=== PATIENT | male | born 1995 | race Caucasian/White ===

== ENCOUNTER 2019-07-02 13:21 | Emergency (ER) | payer SELFPAY ==
[2019-07-02 13:24] VITALS: BP 163/88; PULSE 92; RESP 14; TEMP 36.2; O2SAT 99
--- NOTE | 2019-07-02 13:36 | ED.GENADUL_ITS ---
Discharge Plan Disposition Patient Disposition: HOME Condition: Good Discharge Details Chief Complaint: DentalOral Clinical Impression: Fracture of tooth, Dental infection Primary Care Provider: Marry Moya ED Provider: Gretchen Santillan Home Meds and New Rx's Prescriptions: New oxycodone 5 mg tablet 5 mg PO Q4H PRN (Reason: pain) Qty: 7 RF: 0 acetaminophen [Tylenol Extra Strength] 500 mg tablet 500 mg PO Q4H PRN (Reason: pain) Qty: 30 RF: 0 ibuprofen 600 mg tablet 600 mg PO QID PRN (Reason: pain) Qty: 30 RF: 0 amoxicillin-pot clavulanate [Augmentin] 875-125 mg tablet 1 tab PO BID Qty: 14 RF: 0 Discharge Instructions Instructions: Dental Abscess (ED) Additional Instructions: Encourage hydration. Please use Tylenol and/or ibuprofen as needed as prescribed for discomfort. You may augment this with the oxycodone as prescribed. Please take this only as prescribed. You may not drive while taking this medication. Please keep this in safe place. Please take the Augmentin as prescribed for dental infection. You have an appointment with a dentist at [facility] in [facility] on July 24 at 9:45 AM. You are also on their own wait list and they will contact you with any available openings. If you are unable to make this appointment, please call at [phone]. If you develop fever/chills, swelling, increased pain or the new/worsening symptoms please seek care urgently once again. Attached is a list of local dentist, you may call others in the area to see if you are able to get a more expedited appointment. Referrals: Marry Moya [Primary Care Provider] - Discharge Data Discharge Date/Time-TO BE ENTERED AT DEPARTURE: 07/02/19 13:54 Medical Decision Making Patient is a 23 year old male presenting today with c/c of right upper dental pain. States it has been a week and a half ago his #1 tooth broke. States that initially was not having any pain but pain began the past 2 days and has steadily increase in pain is now severe. States the pain is now radiating slightly forward and reports discomfort near the #2, 3 and 4 tooth. Denies any fevers or chills. States that any pressure applied to the tooth increases pain. On exam, he appears nontoxic. He does appear uncomfortable. He does have a notable fracture to the posterior lateral aspect of the #1 tooth. No focal areas of swelling or erythema. No drainable abscess identified. No lymphadenopathy, no trismus. Exam otherwise benign. At this time, I am primarily concerned for infection given the progression of discomfort. Initially, I had been thinking this may be associated with a fractured tooth but as he is not initially having pain I find this less likely. Feel that treatment is appropriate. He has been contacting dentist and has not been able to find appointment until next spring. Nursing staff contacted local dentist was able to get the patient appointment in 3 weeks with local dentist. Will be placed on Augmentin. I did review the PDMP and feel the patient is safe to prescribe oxycodone to. He was given judicious usage instructions as well as safety precautions regarding oxycodone. He was given strict return precautions. List of local dentist was also given if you would like to contact other local places. All his questions and concerns were addressed and he is in agreement with this plan. HPI General Mode of arrival: ambulatory . Date/Time Provider Initiated Documentation: 07/02/19 13:27 . Limitations to Documentation: no limitations . Information obtained by: patient and RN notes reviewed . History of Present Illness 23 year old M presents to the emergency department with the chief complaint of right upper dental pain, described as moderate, with intensity rated at 6. Quality is described as aching, and is localized to the mouth. Patient reports radiation to (radiates from #1 anteriorly to the #4 tooth). Patient started experiencing this day(s) (2) and it has been constant. No relieving factors improve symptom(s), Eating worsens symptoms . Patient notes no other symptoms.. Patient did receive the following treatments prior to arrival, none Related Data Home Medications Medication Instructions Recorded Confirmed acetaminophen [Tylenol Extra 500 mg PO Q4H PRN #30 tab 07/02/19 Strength] amoxicillin-pot clavulanate 1 tab PO BID #14 tab 07/02/19 [Augmentin] ibuprofen 600 mg PO QID PRN #30 tab 07/02/19 oxycodone 5 mg PO Q4H PRN #7 tab 07/02/19 Previous Rx's Medication Instructions Recorded acetaminophen [Tylenol Extra 500 mg PO Q4H PRN #30 tab 07/02/19 Strength] amoxicillin-pot clavulanate 1 tab PO BID #14 tab 07/02/19 [Augmentin] ibuprofen 600 mg PO QID PRN #30 tab 07/02/19 oxycodone 5 mg PO Q4H PRN #7 tab 07/02/19 Allergies Allergy/AdvReac Type Severity Reaction Status Date / Time No Known Allergies Allergy Unverified 07/02/19 13:27 General Stated Complaint: DentalOral HUMBERTO: 4 Review of Systems Constitutional Constitutional: Reports as per HPI, Denies chills, Denies fatigue, Denies fever(s), Denies headache(s) and Denies poor appetite Eyes Eyes: Denies change in vision and Denies irritation ENT Ears, Nose, Mouth, and Throat: Reports as per HPI, Reports dental pain, Denies dysphagia, Denies dizziness, Denies dry mouth, Denies ear discharge, Denies otalgia, Reports facial pain, Denies headache(s), Denies hoarseness, Denies lip swelling, Denies nasal congestion, Denies odynophagia and Denies sore throat Cardiovascular Cardiovascular: Reports as per HPI and Denies chest pain Respiratory Respiratory: Reports as per HPI and Denies cough Gastrointestinal Gastrointestinal: Reports as per HPI, Denies dysphagia, Denies nausea, Denies odynophagia and Denies vomiting Integumentary/Breasts Skin/Breast: Reports as per HPI, Denies erythema, Denies rash and Denies skin pain Neurologic Neurologic: Reports as per HPI, Denies dizziness and Denies headache(s) Endocrine Endocrine: Denies fatigue Allergic/Immunologic Allergic/Immunologic: Denies lip swelling [facility] Social History Smoking/Tobacco Use Status: Current every day Tobacco Type: e-cigarettes Alcohol Intake: never Drug use: Daily Substance use type: marijuana Do you feel safe at home: Yes Do you feel safe in your relationship?: Yes Exam Const General: cooperative, healthy appearing, uncomfortable (tearing, appears uncomfortable), no acute distress, well developed and well groomed Nutritional Appearance: average body habitus and well nourished Orientation: alert and awake HENLA Head: normal to inspection, normocephalic and atraumatic Ears: hearing grossly normal bilaterally, external ears normal and TM's normal bilaterally General nose exam: external nose normal and nares normal Face and sinus: normal facial exam, sinuses nontender and face symmetric Mouth: oral mucosae normal, lip normal, tongue normal, salivary ducts normal, oropharynx normal and moist mucous membranes Teeth and gingiva: poor dentition (fractured #1 tooth, no focal area of swelling or fluctuance) Throat: posterior oropharynx normal, tonsils normal and uvula midline Eyes General: appearance normal, both eyes and all related structures Neck Neck: normal visual inspection, full ROM, no lymphadenopathy, supple and no anterior neck swelling Resp Effort & Inspection: normal respiratory effort, able to speak in complete sentences and no respiratory distress Auscultation: clear to auscultation bilaterally, no rales, no rhonchi and no wheezes Cardio Rate: regular rate Rhythm: regular rhythm Heart Sounds: S1 normal and S2 normal Skin General skin exam: no rashes or lesions noted Trauma: no lacerations or abrasions Neuro General: alert and awake Cognition: normal cognition Speech: speech normal Gait: normal gait Psych Appearance: grossly normal and well kempt Mental Status: mental status grossly normal Speech and Movement: speech and movement normal Course Vital Signs Vital signs: Vital Signs Temperature 36.2 C L 07/02/19 13:24 Pulse 92 H 07/02/19 13:24 Respiratory Rate 14 07/02/19 13:24 Blood Pressure 163/88 H 07/02/19 13:24 Pulse Oximetry 99 07/02/19 13:24 Temperature 36.2 C L 07/02/19 13:24 Temperature Source Temporal Artery Scan 07/02/19 13:24 Pulse 92 H 07/02/19 13:24 Respiratory Rate 14 07/02/19 13:24 Respiratory Effort Non-Labored 07/02/19 13:26 Blood Pressure 163/88 H 07/02/19 13:24 Blood Pressure Position Sitting 07/02/19 13:24 Pulse Oximetry 99 07/02/19 13:24 Oxygen Delivery Method Room Air 07/02/19 13:24 Oxygen Flow Rate 0 07/02/19 13:24 Pain Level 6 07/02/19 13:24
[2019-07-02] MEDS: oxyCODONE 5 MG TAB PO (13:41)
[2019-07-02] MEDS: Amoxicillin 875/Clav. 125 TAB PO (13:42)
== END 2019-07-02 13:54 | disposition home or self-care (01) ==
PROVIDERS: Emergency Provider Physician Assistant; PCP Nurse Practitioner
DX: S02.5XXA Fracture of tooth (traumatic), initial encounter for closed fracture (principal); X58.XXXA Exposure to other specified factors, initial encounter; K04.7 Periapical abscess without sinus
CPT/HCPCS: 99283